=== PATIENT | male | born 1985 | race African-American/Black ===

== ENCOUNTER 2018-07-12 16:39 | Emergency (ER) | payer BC ==
[~2018-07-12] VITALS: Ht 185.4 cm; Wt 73.5 kg
[2018-07-12 17:10] VITALS: BP 139/88
[2018-07-12] MEDS ORDERED: HYDROcodone-ACET 5/325MG TAB PO ONE (18:15)
== END 2018-07-12 18:56 | disposition home or self-care (01) ==
LOC: EDBD 16:39 → ER 16:48
DX: S93.401A Sprain of unspecified ligament of right ankle, initial encounter (principal); S76.012A Strain of muscle, fascia and tendon of left hip, initial encounter; S16.1XXA Strain of muscle, fascia and tendon at neck level, initial encounter; Z88.8 Allergy status to other drugs, medicaments and biological substances; V43.52XA Car driver injured in collision with other type car in traffic accident, initial encounter; Y93.89 Activity, other specified; Y99.8 Other external cause status; Y92.410 Unspecified street and highway as the place of occurrence of the external cause
CPT/HCPCS: 73502; 73610

== ENCOUNTER 2018-08-11 04:26 | Emergency (ER) | payer BC ==
[~2018-08-11] VITALS: Ht 185.4 cm; Wt 72.6 kg
[2018-08-11 04:38] VITALS: BP 107/74
[2018-08-11] MEDS ORDERED: LIDOCAINE 1% HCL (LOCAL ANESTH.) INJ 20ML MDV IJ ONE (07:45)
== END 2018-08-11 08:17 | disposition home or self-care (01) ==
LOC: ER 04:26
DX: S01.81XA Laceration without foreign body of other part of head, initial encounter (principal); F17.210 Nicotine dependence, cigarettes, uncomplicated; W19.XXXA Unspecified fall, initial encounter; Y93.89 Activity, other specified; Y99.8 Other external cause status; Y92.89 Other specified places as the place of occurrence of the external cause
CPT/HCPCS: 12013; 99283; J2001